=== PATIENT | female | born 1950 | race Hispanic/Latino ===

== ENCOUNTER 2016-11-12 13:13 | Emergency (ER) | payer OTHER ==
[~2016-11-12 13:13] MED LIST: BENZTROPINE ME0.5 M1 PO; CARBIDOPA-LEVO1 EAC7 PO; MELOXICAM7.5 M1 PO; MIRAPEX0.25 M1 PO; NAMZARIC 28 MG1 EACH PO; NAPROXEN500 M2 PO; SYNTHROID125 MCG PO
--- NOTE | 2016-11-12 13:50 | ED AMS/SEIZURE/WEAK/DIZZY ---
History of Present Illness General Chief Complaint: Altered Mental Status Stated Complaint: BIBA FOR AMS PER FAMILY Source: family, EMS Exam Limitations: dementia Vital Signs & Intake/Output Vital Signs & Intake/Output Vital Signs Date Time Temp Pulse Resp B/P Pulse O2 O2 Flow FiO2 Ox Delivery Rate 11/13 1533 97.8 68 16 154/79 97 Room Air 11/13 1207 96.5 60 20 106/69 98 Room Air Allergies Coded Allergies: No Known Allergies (06/28/16) Reconcile Medications Benztropine Mesylate 0.5 MG TABLET 1 TAB PO TID PARKINSONS (Reported) Carbidopa/Levodopa (Carbidopa-Levodopa 25-100 Tab) 1 EACH TABLET 1 TAB PO TID PARKINSONS (Reported) Levothyroxine Sodium (Synthroid) 125 MCG TABLET 1 TAB PO DAILY AC THYROID ( Reported) Meloxicam 7.5 MG TABLET 7.5 MG PO DAILY PAIN (Reported) Memantine HCl/Donepezil HCl (Namzaric 28 MG-10 MG Capsule) 1 EACH CAP.SPR.24 1 CAP PO DAILY MEMORY (Reported) Pramipexole Di-HCl (Mirapex) 0.25 MG TABLET 2 TAB PO TID TREMORS (Reported) Triage Note: PT BROUGHT IN FROM HOME, SENT IN BY FAMILY AND VNA FOR INCREASED CONFUSION, DECREASED PO INTAKE, "NOT ACTING HERSELF" PT DENIES COMPLAINTS. ORIENTED TO PERSON, PLACE AND TIME. Triage Nurses Notes Reviewed? yes Onset: Abrupt Duration: constant Timing: single episode today Injury Environment: home Severity: moderate Severity Numbers: 5 No Modifying Factors: none HPI: Patient is a 66-year-old female with a past medical history of Parkinson's, dementia who was brought in by ambulance for concerns of increased confusion noted by family members today when she woke up. History is limited due to patient having dementia however it is noted by EMS and by nursing staff that patient is alert and oriented to person place and time. Patient currently is asymptomatic and denies any fever, chills, headache blurred vision chest pain and arm pain jaw pain paresthesia weakness dysuria hematuria abdominal pain nausea Denies any new medications (AMBER BALLESTEROS) Past History Travel History Traveled to [place] past 21 day No Medical History Any Pertinent Medical History? see below for history Neurological: dementia, Parkinson's disease EENT: NONE Cardiovascular: NONE Respiratory: NONE Gastrointestinal: NONE Hepatic: NONE Renal: NONE Musculoskeletal: NONE Psychiatric: NONE Endocrine: hypothyroidism Blood Disorders: NONE Cancer(s): NONE DIRECTOR OF PUBLIC HEALTH/Reproductive: NONE Surgical History Surgical History: non-contributory Psychosocial History What is your primary language [place] Tobacco Use: Never used Family History Hx Contributory? No (AMBER BALLESTEROS) Review of Systems Review of Systems Constitutional: Reports: no symptoms. EENTM: Reports: no symptoms. Respiratory: Reports: no symptoms. Cardiovascular: Reports: no symptoms. GI: Reports: no symptoms. Genitourinary: Reports: no symptoms. Musculoskeletal: Reports: no symptoms. Skin: Reports: no symptoms. Neurological/Psychological: Reports: no symptoms. Hematologic/Endocrine: Reports: no symptoms. Immunologic/Allergic: Reports: no symptoms. All Other Systems: Reviewed and Negative (AMBER BALLESTEROS) Physical Exam Physical Exam General Appearance: no apparent distress, alert Comments: Well-developed well-nourished person in no acute distress HEENT: Normal EENT exam, extraocular motion intact, no nystagmus. Pupils equally round and reactive to light and accommodation. Nose is atraumatic. External auditory canal and Tympanic membranes clear. Pharynx normal. No swelling or edema. Neck: Supple, no lymphadenopathy, normal range of motion without pain or tenderness Back: Nontender, no CVA tenderness. Cardiovascular: Regular rate and rhythms no murmurs rubs or gallops, normal JVP Respiratory: Chest nontender. No respiratory distress.breath sounds clear to auscultation bilaterally Abdomen: Soft, nontender nondistended, no appreciable organomegaly. Normal bowel sounds. No ascites Extremity: No edema, no calf tenderness to palpation, normal and equal pulses. Neuro: Alert oriented x2, motor sensory normal, cranial nerves II through XII grossly intact. Skin: No appreciable rash on exposed skin, skin is warm and dry. Psych: Mood and affect is normal, memory and judgment is normal. N I H stroke scale 0 Core Measures ACS in differential dx? No CVA/TIA Diagnosis: No Severe Sepsis Present: No Septic Shock Present: No (AMBER BALLESTEROS) Progress Differential Diagnosis: arrythmia, alcohol intoxication, anemia, benign positional vertigo, CVA/stroke, dehydration, drug intoxication, encephalitis, electrolyte imbalance, GI bleed, hypoglycemia, hypoxia, intracranial Hem., intracranial mass/tumor, labrynthitis, meningitis, Meniere's disease, migraine WATSON, multiple sclerosis, pneumonia, postural hypotension, presyncope, post- traumatic vertigo, sepsis, seizure disorder, subarachnoid Hem., UTI/pyelo, vertebrobasilar insuff Plan of Care: Orders Procedure Date/time Status Theraputic Activities 15 Min 11/13 UNK Complete PT EVAL LOW COMPLEX 20 MIN 11/13 UNK Complete Patient currently has no symptoms and there is no suspicion at this time of CVA or TIA After initial blood work was resulted in being unremarkable I placed a phone call to QUAN the patient's son in which he lives next door to the patient in which he was concerned that patient was more confused and altered compared to her baseline however he does state that patient has Lewy body dementia. He noted that patient had her morning medications gone in which she usually does not self medicate however all other medications were in the proper place. The front door was also open patient seemed dazed and the gas to the stove was on in which the son did smell the gas and immediately turned it off however no [employer] light was on. I discussed patient's history with and case management who will evaluate patient in which there is considerable concern of patient's safety in which she lives in a private residence by herself. Does have a few hours a day of personal aide care however nothing for 24 hours. After case management discussed patient with family that currently it is noted to me that they're discussing whether or not 24-hour care is available for the patient. Case management advised patient to have a physical therapy consultation Nursing staff did note that patient had complaints of weakness upon ambulation However she had steady gait Patient has no neurological deficits on exam. Case management and I talked with family members who were very concerned of patient's well-being of the safety of herself and others in which patient will receive a physical therapy consultation tomorrow and will be evaluated again by case management for most likely a transfer to a short-term rehabilitation facility for 24-hour supervision. At this time patient is not safe to return back to her home in which there is no 24-hour supervision for patients concerning presentation of history Discussed hand off with Dr. Gilman who is aware. Family and patient are aware of disposition plan and agrees (AMBER BALLESTEROS) Initial ED EKG: none Hand-Off Endorsed To: FELICIA PRINCE,FREDY Abdi Endorsed Time: 2207 Pending: consult (AMBER BALLESTEROS) Hand-Off Endorsed To: FIDENCIO PRIETO MD Endorsed Time: 0700 Pending: consult (FELICIA PRINCE,FREDY Abdi) Comments: Arrangements completed for [facility]. (FIDENCIO PRIETO MD) Departure Departure Condition: Stable Clinical Impression Primary Impression: Dementia Referrals: CONNIE GREENE MD (PCP/Family) Departure Forms: Customer Survey General Discharge Information (AMBER BALLESTEROS) PA/STOCKROOM ATTENDANT Co-Sign Statement Statement: ED Attending supervision documentation- [X] I saw and evaluated the patient. I have also reviewed all the pertinent lab results and diagnostic results. I agree with the findings and the plan of care as documented in the PA's/STOCKROOM ATTENDANT's documentation. [X] I have reviewed the ED Record and agree with the PA's/STOCKROOM ATTENDANT's documentation. [] Additions or exceptions (if any) to the PAs/STOCKROOM ATTENDANT's note and plan are summarized below: [] (BRAEDEN BELL MD) PA/STOCKROOM ATTENDANT Co-Sign Statement Statement: ED Attending supervision documentation- [] I saw and evaluated the patient. I have also reviewed all the pertinent lab results and diagnostic results. I agree with the findings and the plan of care as documented in the PA's/STOCKROOM ATTENDANT's documentation. [x] I have reviewed the ED Record and agree with the PA's/STOCKROOM ATTENDANT's documentation.... pt to be evaluated by case management in AM. [] Additions or exceptions (if any) to the PAs/STOCKROOM ATTENDANT's note and plan are summarized below: [] (FREDY GILMAN MD) Departure Time of Disposition: 1509 Disposition: ACUTE REHAB FACILITY (FIDENCIO PRIETO MD) summarized below: [] (BRAEDEN BELL MD) PA/STOCKROOM ATTENDANT Co-Sign Statement Statement: ED Attending supervision documentation- [] I saw and evaluated the patient. I have also reviewed all the pertinent lab results and diagnostic results. I agree with the findings and the plan of care as documented in the PA's/STOCKROOM ATTENDANT's documentation. [x] I have reviewed the ED Record and agree with the PA's/STOCKROOM ATTENDANT's documentation.... pt to be evaluated by case management in AM. [] Additions or exceptions (if any) to the PAs/STOCKROOM ATTENDANT's note and plan are summarized below: [] (FREDY GILMAN MD) Departure Time of Disposition: 1509 Disposition: ACUTE REHAB FACILITY (CONNER PRINCE,FIDENCIO) [] (FELICIA PRINCE,FREDY Abdi)
[2016-11-12 14:18] LABS: ABSOLUTE BASOPHIL COUNT 0 /CUMM (0.0-0.2); ABSOLUTE EOSINOPHIL COUNT 0.1 /CUMM (0.0-0.7); ABSOLUTE GRANULOCYTE CT 4.4 /CUMM (1.4-6.5); ABSOLUTE LYMPH COUNT 1.5 /CUMM (1.2-3.4); ABSOLUTE MONOCYTE COUNT 0.4 /CUMM (0.10-0.60); BASOPHIL % 0.6 % (0.0-2.0); EOSINOPHIL % 0.9 % (0-5); GRANULOCYTE % 69.1 % (42.2-75.2); HEMATOCRIT 37.2 % (37-47); MEAN CORPUSCULAR HGB 31.6 PG (27.0-31.0); MEAN CORPUSCULAR HGB CONC 34.3 G/DL (33.0-37.0); MEAN PLATELET VOLUME 11.8 FL (7.4-10.4); PLATELET COUNT 150 /CUMM (130-400); RBC DISTRIBUTION WIDTH 13.5 % (11.5-14.5); RED BLOOD CELL CT 4.04 /CUMM (4.20-5.40); WHITE BLOOD CELL COUNT 6.4 /CUMM (4.8-10.8)
[2016-11-13 15:33] VITALS: BP 154/79
== END 2016-11-13 16:12 ==
LOC: ERH 13:13
PROVIDERS: Physician Assistant
DX: F03.90 Unspecified dementia, unspecified severity, without behavioral disturbance, psychotic disturbance, mood disturbance, and anxiety (principal)
CPT/HCPCS: 81003; 97161-GP; 97530-GP